=== PATIENT | male | born 1960 | race Caucasian/White ===

== ENCOUNTER 2020-05-07 16:16 | Emergency (ER) | payer OTHER, SELFPAY ==
[~2020-05-07] VITALS: Ht 182.9 cm; Wt 147.0 kg
[2020-05-07 16:27] VITALS: BP_SYST 132
[2020-05-07 17:29] VITALS: BP_SYST 131
== END 2020-05-07 17:29 | disposition home or self-care (01) ==
LOC: SED 16:16
DX: R05 Cough (principal); I10 Essential (primary) hypertension; E11.9 Type 2 diabetes mellitus without complications; I48.91 Unspecified atrial fibrillation; Z88.6 Allergy status to analgesic agent; Z20.828 Contact with and (suspected) exposure to other viral communicable diseases
CPT/HCPCS: 93005; 99284; C9803; U0003